=== PATIENT | female | born 1975 | race Caucasian/White ===

== ENCOUNTER 2016-12-16 06:59 | Emergency (ER) | payer OTHER ==
--- NOTE | 2016-12-16 08:20 | XRay Report ---
ROUTINE CHEST, TWO VIEWS: HISTORY: chest pain. The trachea, heart, mediastinal contour, lung kelley and bony thorax are unremarkable. IMPRESSION: Unremarkable chest x-ray.
[2016-12-16] MEDS ORDERED: TYLENOL PO ONE (09:25)
--- NOTE | 2016-12-16 10:06 | XRay Report ---
LEFT WRIST, 4 views: HISTORY: Pain and swelling. Routine views demonstrate the carpal bones to be well mineralized with well preserved bony mineralization and interosseous joint spaces. The carpal and adjacent articular bones have normal contours. There is moderate anterior soft tissue swelling. IMPRESSION: Soft tissue swelling.
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
[2016-12-16 11:34] VITALS: BP 154/106
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
== END 2016-12-16 11:33 | disposition home or self-care (01) ==
LOC: ED 06:59
DX: S66.912A Strain of unspecified muscle, fascia and tendon at wrist and hand level, left hand, initial encounter (principal); I10 Essential (primary) hypertension; J45.909 Unspecified asthma, uncomplicated; Z88.6 Allergy status to analgesic agent; Z91.010 Allergy to peanuts; Z88.8 Allergy status to other drugs, medicaments and biological substances; Z91.048 Other nonmedicinal substance allergy status; V49.49XA Driver injured in collision with other motor vehicles in traffic accident, initial encounter; W22.11XA Striking against or struck by driver side automobile airbag, initial encounter; Y93.89 Activity, other specified; Y99.8 Other external cause status; Y92.488 Other paved roadways as the place of occurrence of the external cause
CPT/HCPCS: 71020; 71110; 93005; 93010